=== PATIENT | male | born 1970 | race Caucasian/White ===

== ENCOUNTER 2017-09-11 03:50 | Inpatient (IN) | payer OTHER ==
[~2017-09-11] VITALS: Ht 175.3 cm; Wt 111.1 kg
[~2017-09-11 03:50] MED LIST: MEDROLDOSEPACK PO; TRIAMCINOLONE A80 G2 TOP
[2017-09-11 04:11] VITALS: BP 152/97
[2017-09-11 04:15] LABS: ABSOLUTE BASOPHILS 0.1 thou/uL (0.0-0.2); ABSOLUTE LYMPHOCYTES 1.7 thou/uL (0.8-5.3); ABSOLUTE MONOCYTES 0.5 thou/uL (0.0-1.2); ABSOLUTE NEUTROPHILS 12.8 thou/uL (1.6-8.1); BASOPHILS 0.7 %; EOSINOPHILS 0.1 %; HEMATOCRIT 44.2 % (42.0-52.0); HEMOGLOBIN 14.6 gm/dL (14.0-18.0); LYMPHOCYTES 11.5 %; MCH 28.2 pg (26.0-34.0); MCV 85.4 fL (80.0-100.0); MONOCYTES 3.6 %; MPV 7.1 fl. (7.2-11.1); NUCLEATED RBCS 0 /100WBC; PLATELET COUNT* 270 thou/uL (150-400); POLYS 84.1 %; RBC 5.18 mil/uL (4.50-6.00); RDW-CV 13.4 % (10.5-14.5); WBC 15.2 thou/uL (4.0-11.0)
[2017-09-11 04:35] LABS: ANION GAP 8 mmol/L (7-16); BUN 8 mg/dL (7-18); CHLORIDE 99 mmol/L (98-107); CO2 29 mmol/L (21-32); CREATININE 0.8 mg/dL (0.6-1.3); GLUCOSE 148 mg/dL (70-99); POTASSIUM 3.9 mmol/L (3.5-5.1); SODIUM 136 mmol/L (136-145)
[2017-09-11 04:41] LABS: ALBUMIN 4.1 g/dL (3.4-5.0); ALKALINE PHOSPHATASE 82 U/L (46-116); LIPASE 110 U/L (73-393); SGOT 32 U/L (15-37); SGPT 50 U/L (30-65); TOTAL BILIRUBIN 0.5 mg/dL (<0.1-1.0); TROPONIN-I LEVEL <0.06 ng/mL (<0.06)
--- NOTE | 2017-09-11 07:27 | NUR ---
PT C/O 02/21 EPIGASTRIC PAIN. FENTANYL GIVEN AT 0500 & ORDERED Q [address] MELLO TO INQUIRE ABOUT PAIN CONTROL. AWAITING RETURN CALL.
--- NOTE | 2017-09-11 07:28 | NUR ---
REPORTED INCREASED PAIN & ANALGESIC NOT DUE YET TO DR. CORRIGAN. SEE ORDER FOR MORPHINE.
[2017-09-11 08:50] VITALS: BP 118/75
[2017-09-11 09:13] VITALS: BP 130/84
--- NOTE | 2017-09-11 11:21 | EKG ---
[place] [address] ELECTROCARDIOGRAM REPORT Name: OBI PACHECO Room: [address] ADM IN .R.#: [id number] Admission: 09/11/17 Attend Phys: Hardy Garcia DO Discharge: Date of : 74 Report #: [id number] THIS REPORT FOR: //name// [facility] ED Test Date: 2017-09-11 Test Time: 04:04:57 Pat Name: OBI PACHECO Department: Room: Gender: M Switchboard Operator: MOISÉS : 1970 Requested By: Abiodun Torres Order Number: [id number] MD: Dionisio Randall Measurements Intervals Cory Rate: 69 P: 13 WA: 174 QRS: 19 QRSD: 90 T: 12 QT: 378 QTc: 405 Interpretive Statements Sinus rhythm Baseline wander in lead(s) I,III,aVR,aVL,aVF,V1,V2,V3,V4,V5,V6 No previous ECG available for comparison Electronically Signed On 09-11-2017 11:21:21 CDT by Dionisio Randall [email or web address] <ELECTRONICALLY SIGNED> By: Dionisio Randall MD, FAC 09/11/17 1121 [id number] Dionisio Randall MD, [facility] /EPI
[2017-09-11 16:00] VITALS: BP 135/74
--- NOTE | 2017-09-11 17:27 | NUR ---
PATIENT CAME TO THE FLOOR THIS MORNING IN STABLE CONDITION. VITAL SIGNS STABLE ON ROOM AIR BUT PATIENT WEARS OXYEN 2 LITERS WHEN SLEEPING CAME FROM THE ER THAT WAY. IV IN RIGHT AC WORKS WELL WITH FLUIDS AND ANTIBIOTICS. UP AD ETHEL IN ROOM. ADMISSION ASSESSMENT AND EDUCATION DONE. PATIENT HAS BEEN ALERT AND ORIENTED TODAY, SOME COMPLAINTS OF PAIN THAT IS SOMEWHAT CONTROLLED WITH IV PAIN MEDICATIONS TODAY. PATIENT IS ABLE TO HAVE ICE CHIPS ONLY, CHECKED WITH SURGERY AND THEY ARE AWARE. CALL LIGHT IS IN REACH, WILL CONTINUE TO MONITOR.
--- NOTE | 2017-09-11 18:32 | NUR ---
PATIENT HAS BEEN ALERT AND ORIENTED TODAY, SLEEPING MOST OF THE DAY. IV IN RIGHT AC WORKS WELL. VITAL SIGNS STABLE. SOME COMPLAINTS OF PAIN TODAY THAT IS CONTROLLED WITH IV PAIN MEDICATIONS. CALL LIGHT IS IN REACH, WILL CONTINUE TO MONITOR.
[2017-09-11 20:30] VITALS: BP 125/55
[2017-09-12 05:20] LABS: ABSOLUTE BASOPHILS 0.1 thou/uL (0.0-0.2); ABSOLUTE LYMPHOCYTES 1.8 thou/uL (0.8-5.3); ABSOLUTE MONOCYTES 1.5 thou/uL (0.0-1.2); ABSOLUTE NEUTROPHILS 14.4 thou/uL (1.6-8.1); BASOPHILS 0.4 %; EOSINOPHILS 0.1 %; HEMATOCRIT 41.3 % (42.0-52.0); HEMOGLOBIN 14.1 gm/dL (14.0-18.0); LYMPHOCYTES 10.3 %; MCHC 34.1 g/dL (28.0-37.0); MONOCYTES 8.6 %; MPV 7.5 fl. (7.2-11.1); NUCLEATED RBCS 0 /100WBC; PLATELET COUNT* 252 thou/uL (150-400); POLYS 80.6 %; RBC 4.86 mil/uL (4.50-6.00); RDW-CV 13.8 % (10.5-14.5); WBC 17.9 thou/uL (4.0-11.0)
[2017-09-12 05:49] LABS: ALBUMIN 3.3 g/dL (3.4-5.0); CALCIUM 8.3 mg/dL (8.5-10.1); POTASSIUM 3.9 mmol/L (3.5-5.1); TOTAL BILIRUBIN 0.9 mg/dL (<0.1-1.0); TOTAL PROTEIN 6.8 g/dL (6.4-8.2)
[2017-09-12 07:50] VITALS: BP 114/65
--- NOTE | 2017-09-12 07:58 | NUR ---
PATIENT HAS SLEPT WELL THROUGHOUT THE NIGHT WITHOUT ANY ISSUES. VSS ON 2L 02 VIA NASAL CANNULA ALTHOUGH PATIENT DID HAVE LOW GRADE TEMP OF 100.9. PATIENT HAS REMAINED NPO WITH ONLY ICE CHIPS. PATIENT IS UP AD-ETHEL AND STEADY. IV IN RIGHT AC-NS @ 100ML/HR. PATIENT INSTRUCTED TO USE CALL LIGHT WHEN NEEDING ASSISTANCE. HOURLY ROUNDS MADE. WILL CONTINUE WITH PLAN OF CARE AND NURSING TO MONITOR.
[2017-09-12 16:00] VITALS: BP 119/67
--- NOTE | 2017-09-12 16:03 | NUR ---
PATIENT A&OX4, ROOM AIR, IV RIGHT AC FLUIDS INFUSSING. UP AD ETHEL, STEADY GAIT. LAPROSCOPIC CHOLECYSTECTOMY SCHEDULED FOR TOMORROW MORNING 09/13 AT 0730, CONSENT SIGNED. SPOKE WITH DR. CLEMENTE, PATIENT ABLE TO HAVE CLEAR LIQUIDS UNTIL MIDNIGHT. INSTRUCTED TO STOP IF ORAL FLUIDS CAUSING PAIN, VERBALIZES UNDERSTANDING. NO C/O PAIN/N/V. NO OTHER CONCERNS AT THIS TIME. APPROPRAITE AND COOPORATIVE WITH CARE.
[2017-09-12 21:30] VITALS: BP 141/78
[2017-09-13 00:55] VITALS: BP 141/78
[2017-09-13 05:19] LABS: HEMATOCRIT 39.2 % (42.0-52.0); MCH 28.5 pg (26.0-34.0); MCHC 33.1 g/dL (28.0-37.0); MCV 86.1 fL (80.0-100.0); MPV 7.5 fl. (7.2-11.1); RBC 4.55 mil/uL (4.50-6.00); RDW-CV 13.4 % (10.5-14.5); WBC 15.5 thou/uL (4.0-11.0)
--- NOTE | 2017-09-13 05:19 | NUR ---
PATIENT HAS SLEPT WELL THROUGHOUT THE NIGHT WITHOUT ANY ISSUES. VSS ON RA. PAIN WELL CONTROLLED. IV PAIN MEDICATION GIVEN X 1 AND CHARTED. PATIENT IS UP AD-ETHEL AND STEADY. IV IN RIGHT AC-NS @ 100ML/HR. IV ABT GIVEN WITHOUT ANY ADVERSE SIDE EFFECTS NOTED. PATIENT HAS REMAINED NPO SINCE MIDNIGHT D/T SCHEDULED SURGERY THIS AM. CONSENT FOR LAPAROSCOPIC CHOLECYSTECTOMY SIGNED BY PATIENT. PATIENT INSTRUCTED TO USE CALL LIGHT WHEN NEEDING ASSISTANCE. HOURY ROUNDS MADE. WILL CONTINUE WITH PLAN OF CARE AND NURSING TO MONITOR.
[2017-09-13 05:54] LABS: ALBUMIN 3.1 g/dL (3.4-5.0); CALCIUM 8.2 mg/dL (8.5-10.1); POTASSIUM 4.1 mmol/L (3.5-5.1); TOTAL BILIRUBIN 0.6 mg/dL (<0.1-1.0); TOTAL PROTEIN 6.6 g/dL (6.4-8.2)
[2017-09-13 06:58] VITALS: BP 111/54
[2017-09-13 11:00] VITALS: BP 125/77
--- NOTE | 2017-09-13 13:20 | NUR ---
MET WITH PT TO DISCUSS HOME SITUATION/DC PLANNING. PT LIVES WITH COUSIN. HE WORKS AND IS ACTIVE AND INDEPENDENT. USES NO EQUIPMENT. STATES HIS INSURANCE AT HIS JOB SHOULD BE ACTIVE LATER THIS MONTH. GAVE COMMUNITY RESOURCES AND INFO ON [employer]. DENIES DC NEEDS. WILL FOLLOW
--- NOTE | 2017-09-13 16:21 | NUR ---
PATIENT A&OX4, LETHARGIC POST SURGERY. ON 3L O2 VIA NC POST SURGERY, ON O2 FOR 24 HOURS. IV RIGHT AC, FLUIDS INFUSSING. UP AD ETHEL, INSTRUCTED TO CALL FOR ASSISTANCE POST SURGERY. NO C/O PAIN/N/V. NO OTHER CONCERNS AT THIS TIME. APPROPRIATE AND COOPORATIVE WITH CARE.
[2017-09-13 16:50] VITALS: BP 123/78
[2017-09-13 22:00] VITALS: BP 124/78
[2017-09-14 00:18] VITALS: BP 132/76
[2017-09-14 04:27] VITALS: BP 118/70
[2017-09-14 04:48] LABS: HEMOGLOBIN 12.9 gm/dL (14.0-18.0); MCH 28.6 pg (26.0-34.0); MCHC 33.1 g/dL (28.0-37.0); MCV 86.6 fL (80.0-100.0); MPV 7.6 fl. (7.2-11.1); NUCLEATED RBCS 0 /100WBC; PLATELET COUNT* 255 thou/uL (150-400); RBC 4.51 mil/uL (4.50-6.00); RDW-CV 13.2 % (10.5-14.5)
[2017-09-14 05:11] LABS: ALBUMIN 3.1 g/dL (3.4-5.0); CALCIUM 8.5 mg/dL (8.5-10.1); CREATININE 0.8 mg/dL (0.6-1.3); POTASSIUM 4.2 mmol/L (3.5-5.1); TOTAL BILIRUBIN 0.4 mg/dL (<0.1-1.0)
[2017-09-14 05:45] LABS: ABSOLUTE LYMPHOCYTES 1.1 thou/uL (0.8-5.3); ABSOLUTE MONOCYTES 0.5 thou/uL (0.0-1.2); ABSOLUTE NEUTROPHILS 10.4 thou/uL (1.6-8.1); ANISOCYTOSIS 1+; PLATELET ESTIMATE ADEQUATE; POIKILOCYTOSIS 1+
--- NOTE | 2017-09-14 07:46 | NUR ---
PATIENT HAS SLEPT WELL THROUGHOUT THE NIGHT WITHOUT ANY ISSUES NOTED. PAIN WELL CONTROLLED. VSS ON RA. NO NAUSEA OR VOMITING. PATIENT IS UP AD-ETHEL AND STEADY. ABDOMINAL LAP SITES X 3 ARE C/D/I AND YORDAN DRAIN IN PLACE. HOURLY ROUNDS MADE. WILL CONTINUE WITH PLAN OF CARE AND NURSING TO MONITOR.
[2017-09-14 07:50] VITALS: BP 139/88
[2017-09-14 12:36] VITALS: BP 139/88
[2017-09-14] MEDS ORDERED: HYDROCODONE-AP1 EAC6 PO (13:46)
--- NOTE | 2017-09-14 14:05 | NUR ---
ASSUMED CARE OF PATIENT AFTER MORNING REPORT. ALERT AND ORIENTED X4. ASSESSMENT COMPLETED AND CHARTED. VSS ON ROOM AIR. FLUIDS INFUSED ORDERED, DISCONTINUED DIET WAS ADVANCED. ADVANCED DIET TO CLEARS THEN REGULAR AND TOLERATED WELL. NO COMPLAINTS OF PAIN, NAUSEA OR SOA THIS SHIFT. PATIENTS YORDAN DRAIN REMOVED BY DR ROSENBERG AND CLEARED FRO DISCHARGED. IV REMOVED AND PATIENT DISCHARGED AT 1400. ALL PERSONAL BELONGINGS, PRESCRIPTIONS AND DISCHARGE INFORMATION SENT WITH PATIENT UPON DISCHARGE.
--- NOTE | 2017-09-20 09:48 | OP ---
[address] [address] OPERATIVE REPORT Name: JUNIOROBIJohn JERRY Room: [address] IN .R.#: [id number] Admission: 09/11/17 Attend Phys: Hardy Garcia DO Discharge: 09/14/17 Date of : 74 Report #: [id number] THIS REPORT FOR: //name// CC: Hardy ROSALES physician/PCP DATE OF SERVICE: 09/13/2017 DATE OF PROCEDURE: 09/13/2017. PREOPERATIVE DIAGNOSIS: Acute calculous cholecystitis. POSTOPERATIVE DIAGNOSIS: Acute calculous cholecystitis. PROCEDURE: Laparoscopic cholecystectomy and aspiration of the gallbladder. SURGEON: Hardy Garcia DO. TRANSLITERATOR: Dr. Reggie Gomez. ANESTHESIA: General endotracheal. ESTIMATED BLOOD LOSS: Less than 50 mL. COMPLICATIONS: None. DESCRIPTION OF PROCEDURE: After obtaining proper consents and discussing risks and complications with the patient, he was taken to the operating room, laid in the supine position, administered general endotracheal anesthetic. He was then prepped and draped in the usual fashion. A timeout was performed. We confirmed the appropriate patient and procedure. Preoperative antibiotics had been given. SCDs were in place. We then made a supraumbilical skin incision with a #11 scalpel blade. This was carried down through the skin into the subcutaneous tissue using electrocautery for hemostasis. Once the fascia was encountered, it was incised along the midline, grasped and elevated with [facility] clamps and divided further. The peritoneum was then bluntly opened using a hemostat. A finger was placed inside the peritoneal cavity to assure that there were no ct-incisional adhesions. Next, two 0 Vicryl sutures were placed in a [id number] fashion to secure the Jass trocar, which was then inserted and insufflation was begun. Once insufflation was complete, full visual inspection of the anterior abdominal organs was performed. This revealed a very dilated-appearing gallbladder. There was some pericholecystic fluid identified and around it, there were no other gross abnormalities identified. The patient was then placed in reverse Trendelenburg position. A 5 mm trocar was placed in the subxiphoid position. Two 5 mm trocars were placed in the right flank. We then attempted to grasp and elevate the gallbladder; however, [place] [address] OPERATIVE REPORT Name: OBI PACHECO Room: [address]#: [id number] Admission: 09/11/17 Attend Phys: Hardy Garcia DO Discharge: 09/14/17 Date of : 74 Report #: [id number] that I was unable to grasp it. We did use an aspiration needle and aspirated approximately 60 mL of clear bile from the patient's gallbladder. Once this was done, I was able to grasp and elevate the gallbladder. The hepatoduodenal ligament and Kristi's pouch were identified. The hepatoduodenal ligament was stripped down very cautiously from the gallbladder downward until we could visualize the cystic duct as it coursed directly into the gallbladder. The cystic duct and cystic artery were both dissected free. We obtained a critical view of safety and then once the critical view of safety was obtained, we then clipped the cystic duct proximally and distally. It was then divided. The cystic artery was similarly dissected free. It was clipped proximally and distally and then divided. The gallbladder was then cautiously dissected from the liver bed using electrocautery as well as blunt dissection. Once this was complete, the cystic duct and cystic artery stumps and liver bed were all checked for any leak or bleeding. The liver bed was cauterized to assure hemostasis and as a precaution, we did place 2 pieces of Surgicel in the gallbladder fossa as well. The gallbladder was placed into an Endopouch. We placed a 15-[place] Juan-Mitchell drain through a separate stab incision. This was placed down along the gallbladder fossa and sutured in place to the skin using 2-0 nylon suture. We then stopped the insufflation, all air was released. Trocars were removed. The gallbladder was removed through the umbilical incision. We did have to enlarge the incision in order to do this. We then removed the gallbladder through this incision and then placed 5 total 0 Vicryl sutures in a [id number]-[id number]-acspw fashion to close the fascia. Skin incisions were all injected with 0.5% Marcaine without epinephrine and closed using 4-0 Monocryl subcuticular stitches. Mastisol, Steri-Strips, sterile OpSite and pressure dressings were placed. The patient tolerated the procedure well and was awakened in the operating room and transported to recovery room in stable condition. <ELECTRONICALLY SIGNED> By: Hardy Garcia DO 09/20/17 0948 [id number] Garcia DO /nt
--- NOTE | 2017-09-22 13:09 | CON ---
[address] [address] CONSULTATION Name: OBI PACHECO Room: [address] IN .R.#: [id number] Admission: 09/11/17 Attend Phys: Hardy Garcia DO Discharge: 09/14/17 Date of : 74 Report #: [id number] THIS REPORT FOR: //name// CC: Hardy ROSALES physician/PCP DICTATED BY: Larissa LAMB DATE OF SERVICE: 09/11/2017 The patient does not have a PCP. Please note, at the time of this dictation, the patient was seen and physically examined by myself. REASON FOR CONSULTATION: Cholecystitis. HISTORY OF PRESENT ILLNESS: This is a 47-year-old male who presented to the Emergency Room with having ongoing epigastric pain that started on the in the morning. He states he had some nausea and vomiting initially that he did not notice any bright red blood or any melena and also some chilling. He denied any diarrhea at that time. He states his bowels move normal daily to every other day, soft and formed with no issues. He has never seen a GI doctor before and has never experienced any of this discomfort like that before either. The patient does admit that over the past year, he is noticing some GERD symptoms where he elevates the head of his bed to help with some of his symptoms that occur at night and has just been randomly taking [id number] medications for this to help with his discomfort. ALLERGIES: No known drug allergies. MEDICATIONS FROM HOME: None. PAST MEDICAL HISTORY: Negative. PAST SURGICAL HISTORY: Negative. FAMILY HISTORY: Negative for any GI or female cancers. SOCIAL HISTORY: He does smoke about a half a pack or so a day. Denies any alcohol use or illegal drug use at this time. REVIEW OF SYSTEMS: Twelve-point review of systems is essentially negative except what is mentioned in the HPI. PHYSICAL EXAMINATION: VITAL SIGNS: Temperature 36.7, pulse 70, respirations 18, blood pressure 130/84. [place] [address] CONSULTATION Name: OBI PACHECO Room: [address]#: [id number] Admission: 09/11/17 Attend Phys: Hardy Garcia DO Discharge: 09/14/17 Date of : 74 Report #: [id number] HEART: Regular rate and rhythm. LUNGS: Clear. ABDOMEN: Soft, positive bowel sounds in all 4 quadrants with right upper quadrant tenderness noted. LABORATORY DATA: Hemoglobin 14.6, hematocrit 44.2, white count is 15.2, platelets is 270. Sodium 136, potassium 3.9, chloride 99, CO2 29, BUN is 8, creatinine 0.8, GFR is 105, glucose is 148, lipase is 110. He does have a CK of 349. Total bilirubin 0.5, alkaline phosphatase 82. ALT is 50, and AST is 32. CT of the abdomen and pelvis showed layering gallstones with one lodged in the neck of the gallbladder. Ultrasound confirms a stone in the neck of the gallbladder with no CBD dilatation noted at this time. IMPRESSION: 1. Epigastric pain, right upper quadrant pain. 2. Cholecystitis. 3. Leukocytosis. 4. Gastroesophageal reflux disease. PLAN: 1. Surgical intervention and they are onboard. 2. The patient will need a laparoscopic cholecystectomy with IOC. 3. Follow up as an outpatient regarding GERD if his symptoms are not resolved after his laparoscopic cholecystectomy for possible EGD. 4. We will be on standby as needed. Thank you for allowing us to participate in this patient's care. Please do not hesitate to call with any questions in regard to this consult. ADDENDUM I have personally seen and examined the patient and reviewed labs and imaging studies. The patient with right upper quadrant abdominal pain and evidence of cholecystitis per imaging and leukocytosis. Liver functions are all within normal limits. The common bile duct is 4 mm in size. The patient may have a laparoscopic cholecystectomy with IOC and if there is any question in regards to filling defect, we may consider ERCP at that point. He also complains of gastroesophageal reflux symptoms. We will consider endoscopic evaluation as outpatient. The patient is agreeable with plan. <ELECTRONICALLY SIGNED> By: Adolfo Bernard MD 09/22/17 1309 [id number] Bernard MD /nt
== END 2017-09-14 14:00 | disposition home or self-care (01) | DRG 419 ==
LOC: M.ERS 03:50 → M.ORTHSURG 06:31 → M.TBA-ER 06:31 → M.ORTHSURG 09:09
PROVIDERS: Family Medicine; Surgery; ADMIT Surgery
PROC: 0FT44ZZ Resection of Gallbladder, Percutaneous Endoscopic Approach (ICD-10-PCS; principal; 2017-09-13)
DX: K80.00 Calculus of gallbladder with acute cholecystitis without obstruction (principal); K21.9 Gastro-esophageal reflux disease without esophagitis; D72.810 Lymphocytopenia; F17.210 Nicotine dependence, cigarettes, uncomplicated; Z79.899 Other long term (current) drug therapy

== ENCOUNTER 2021-01-27 22:56 | Emergency (ER) | payer OTHER ==
[~2021-01-27] VITALS: Ht 175.3 cm; Wt 108.0 kg
[~2021-01-27 22:56] MED LIST changes: +HYDROCODONE-AP1 EAC6 PO
[2021-01-28] MEDS ORDERED: TRIAMCINOLONE A80 G2 TOP (02:02)
[2021-01-28] MEDS ORDERED: PREDNISONE50 MG PO (02:02)
[2021-01-28 02:18] VITALS: BP 113/77
== END 2021-01-28 02:19 | disposition home or self-care (01) ==
LOC: M.ERS 22:56
DX: L30.9 Dermatitis, unspecified (principal)

== ENCOUNTER 2021-05-25 10:56 | Emergency (ER) | payer OTHER, MEDICAID ==
[~2021-05-25] VITALS: Ht 175.3 cm; Wt 106.6 kg
[~2021-05-25 10:56] MED LIST changes: +PREDNISONE50 MG PO
[2021-05-25] MEDS ORDERED: TORADOL 10 MG T10 MG PO (12:11)
[2021-05-25] MEDS ORDERED: FLEXERIL PO (12:11)
[2021-05-25] MEDS ORDERED: MEDROLDOSEPACK PO (12:11)
[2021-05-25 12:21] VITALS: BP 157/100
== END 2021-05-25 12:22 | disposition home or self-care (01) ==
LOC: M.ERS 10:56
DX: M54.42 Lumbago with sciatica, left side (principal)

== ENCOUNTER 2021-07-06 10:27 | Emergency (ER) | payer OTHER, MEDICAID ==
[~2021-07-06] VITALS: Ht 175.3 cm; Wt 106.6 kg
[~2021-07-06 10:27] MED LIST changes: +FLEXERIL PO; +TORADOL 10 MG T10 MG PO
[2021-07-06 11:01] VITALS: BP 144/111
== END 2021-07-06 11:00 | disposition home or self-care (01) ==
LOC: M.ERS 10:27
DX: N48.1 Balanitis (principal); K66.0 Peritoneal adhesions (postprocedural) (postinfection); F17.210 Nicotine dependence, cigarettes, uncomplicated